=== PATIENT | female | born 1930 | race Caucasian/White ===

== ENCOUNTER 2016-06-11 18:16 | Emergency (ER) | payer MEDICARE, BC ==
--- NOTE | 2016-06-12 02:04 | ER ---
DATE SEEN: 06/11/2016 TIME SEEN: The patient was seen at 1900. HISTORY OF PRESENT ILLNESS: This is a very pleasant 86-year-old woman who looks like she is 68 years of age. Comes with a history of a piece of her hearing aid being lodged in her left ear. They attempted to remove it without success. On inspection of the external ear canal, indeed there was the pliable Silastic earpiece lodged mid external canal. This was easily removed with ENT forceps. No complications or problems. No perforation. OTHER DIAGNOSES: 1. Thoracic aortic aneurysm, being followed. 2. Gastroesophageal reflux disease. 3. Dyslipidemia. 4. Hypothyroidism. 5. Hypertension. CURRENT MEDICATIONS: 1. Famotidine. 2. Simvastatin. 3. Levothyroxine. 4. Metoprolol tartrate. 5. Irbesartan. ALLERGIES: None. PHYSICAL EXAMINATION: GENERAL: As noted above, pleasant woman, in no acute distress with a foreign body in the left external canal. This was removed easily. NECK: No cervical adenopathy. No bruits in neck. LUNGS: Clear to auscultation. HEART: S1, S2. No murmur. ABDOMEN: Soft. EXTREMITIES: Without abnormality. ASSESSMENT: Foreign body, left ear, removed easily from the external ear. PLAN: Follow up with doctor as needed. /[id number]
== END 2016-06-11 18:50 | disposition home or self-care (01) ==
LOC: FB.ED 18:16
CPT/HCPCS: 99282